=== PATIENT | male | born 1945 | race Caucasian/White ===

== ENCOUNTER 2016-04-14 10:47 | Emergency (ER) | payer MEDICARE, OTHER ==
[~2016-04-14 10:47] MED LIST: ASPIRIN EC325 MG PO; IMDUR ER TAB 6060 MG PO; LIPITOR TAB 1010 MG PO; LOPRESSOR 25 MG25 MG PO; NITROSTAT 0.40.4 MG SL; RANEXA500 MG PO
[2016-04-14 12:06] LABS: HEMOGLOBIN 12.7 gm/dl (14.0-17.5); RED BLOOD COUNT 4.05 M/UL (4.20-5.50); WHITE BLOOD COUNT 12.9 K/UL (4.5-11.0)
[2016-04-14 12:26] LABS: BUN/CREATININE RATIO 18 (0-10)
== END 2016-04-14 14:20 | disposition home or self-care (01) ==
LOC: ER1 10:47
PROVIDERS: Physician Assistant
DX: J10.1 Influenza due to other identified influenza virus with other respiratory manifestations (principal); N39.0 Urinary tract infection, site not specified; I25.2 Old myocardial infarction; Z95.1 Presence of aortocoronary bypass graft; Z85.46 Personal history of malignant neoplasm of prostate
CPT/HCPCS: 36415; 71020; 80053; 81001; 85025; 87086; 96372; 99283; J0696

== ENCOUNTER → 2020-02-23 | Outpatient (CLI) | payer MEDICARE, OTHER ==
[~2020-02-23] MED LIST changes: +ACCUPRIL 10 MG10 MG PO; +ALBUTEROL1.25 MG/3 INH; +AMIODARONE HCL200 MG PO; +AUGMENTIN 875-1 EACH PO; +CEFUROXIME500 MG PO; +CILOSTAZOL50 MG PO; +DULERA 200 MCG8.8 GM INH; +ELIQUIS 5 MG TAB5 MG PO; +IPRATROPIU0.2 MG/1 M NEB; +ISOSORBIDE MONO60 MG PO; +K-DUR TAB 10 M10 MEQ PO; +K-TAB ER10 MEQ PO; +LASIX40 MG PO; +LEVAQUIN750 MG PO; +LIPITOR TAB 2020 MG PO; +LISINOPRIL5 MG PO; +LOPRESSOR 50 MG50 MG PO; +MAG-OX 400 TAB400 MG PO; +MEDROL4 MG PO; +MOTRIN IB200 MG PO; +NORVASC 5 MG TAB5 MG PO; +PREDNISONE 5 MG5 MG PO; +PRILOSEC OTC20 MG PO; +PROTONIX40 MG PO; +QUINAPRIL HCL20 MG PO; +RANEXA1000 MG PO; +SYMBICORT 16010.2 GM INH; +TYLENOL325 MG PO; +VITAMIN B-121000 MCG PO; +ZITHROMAX250 MG PO; +ZYTIGA250 MG PO
[2020-02-23 10:01] LABS: BUN/CREATININE RATIO 16 (0-10)
== END ==
LOC: LAB 09:24
PROVIDERS: Internal Medicine Cardiovascular Disease
DX: I10 Essential (primary) hypertension (principal)
CPT/HCPCS: 36415; 80053

== ENCOUNTER 2020-09-04 11:25 | Emergency (ER) | payer MEDICARE, SELFPAY ==
[~2020-09-04] VITALS: Ht 172.7 cm; Wt 98.9 kg
[2020-09-04 11:59] LABS: HEMOGLOBIN 11.7 gm/dl (14.0-17.5); RED BLOOD COUNT 3.72 M/UL (4.20-5.50); WHITE BLOOD COUNT 4.2 K/UL (4.5-11.0)
[2020-09-04 12:11] LABS: BUN/CREATININE RATIO 15 (0-10)
[2020-09-04] MEDS ORDERED: K-DUR TAB 20 M20 MEQ PO (16:36)
== END 2020-09-04 17:40 | disposition home or self-care (01) ==
LOC: ER1 11:25
PROVIDERS: Physician Assistant
DX: Z23 Encounter for immunization (principal); U07.1 COVID-19; E87.6 Hypokalemia; I25.10 Atherosclerotic heart disease of native coronary artery without angina pectoris; I25.2 Old myocardial infarction; I50.9 Heart failure, unspecified; Z85.46 Personal history of malignant neoplasm of prostate; Z20.822 Contact with and (suspected) exposure to COVID-19
CPT/HCPCS: 71045; 80053; 82550; 82553; 83874; 84484; 85025; 93005; 99285; M0243; Q0243; U0002

== ENCOUNTER 2020-09-10 20:20 | Emergency (ER) | payer MEDICARE ==
[~2020-09-10 20:20] MED LIST changes: +K-DUR TAB 20 M20 MEQ PO
[2020-09-10 22:39] LABS: HEMOGLOBIN 12.4 gm/dl (14.0-17.5); RED BLOOD COUNT 3.85 M/UL (4.20-5.50); WHITE BLOOD COUNT 8.1 K/UL (4.5-11.0)
[2020-09-10 23:17] LABS: BUN/CREATININE RATIO 15 (0-10)
[2020-09-10] MEDS ORDERED: IPRAT-ALBUT 0.5-3 ML INH (23:38)
[2020-09-10] MEDS ORDERED: DECADRON6 MG PO (23:38)
[2020-09-10] MEDS ORDERED: K-DUR TAB 20 M20 MEQ PO (23:43)
== END 2020-09-11 | disposition home or self-care (01) ==
LOC: ER1 20:20
PROVIDERS: Family Medicine
DX: U07.1 COVID-19 (principal); E87.6 Hypokalemia; J44.9 Chronic obstructive pulmonary disease, unspecified; I11.0 Hypertensive heart disease with heart failure; I50.20 Unspecified systolic (congestive) heart failure
CPT/HCPCS: 36600; 71045; 80053; 82550; 82553; 82803; 83605; 83874; 83880; 84484; 85025; 93005; 96374; 99285; J1100

== ENCOUNTER 2020-11-06 15:22 | Emergency (ER) | payer MEDICARE ==
[~2020-11-06 15:22] MED LIST changes: +DECADRON6 MG PO; +IPRAT-ALBUT 0.5-3 ML INH
[2020-11-06 16:08] LABS: HEMOGLOBIN 13.2 gm/dl (14.0-17.5); RED BLOOD COUNT 4.03 M/UL (4.20-5.50)
[2020-11-06 16:54] LABS: BUN/CREATININE RATIO 29 (0-10)
== END 2020-11-06 17:53 | disposition home or self-care (01) ==
LOC: ER1 15:22
PROVIDERS: Family Medicine
DX: S32.049A Unspecified fracture of fourth lumbar vertebra, initial encounter for closed fracture (principal); S32.019A Unspecified fracture of first lumbar vertebra, initial encounter for closed fracture; X50.0XXA Overexertion from strenuous movement or load, initial encounter
CPT/HCPCS: 72131; 80053; 81001; 85025; 96372; 99284; J1100; J2270; J2550

== ENCOUNTER 2020-11-10 20:40 | Emergency (ER) | payer MEDICARE ==
[2020-11-10] MEDS ORDERED: HYDROCODON-ACE1 EAC4 PO (23:50)
== END 2020-11-11 | disposition home or self-care (01) ==
LOC: ER1 20:40
DX: S32.019A Unspecified fracture of first lumbar vertebra, initial encounter for closed fracture (principal); I25.10 Atherosclerotic heart disease of native coronary artery without angina pectoris; I10 Essential (primary) hypertension; Z95.1 Presence of aortocoronary bypass graft; X58.XXXA Exposure to other specified factors, initial encounter
CPT/HCPCS: 99283

== ENCOUNTER 2020-12-30 19:03 | Emergency (ER) | payer MEDICARE ==
[~2020-12-30 19:03] MED LIST changes: +HYDROCODON-ACE1 EAC4 PO
[2020-12-30 20:02] LABS: HEMOGLOBIN 13.6 gm/dl (14.0-17.5); RED BLOOD COUNT 4.22 M/UL (4.20-5.50); WHITE BLOOD COUNT 8.6 K/UL (4.5-11.0)
[2020-12-30 20:19] LABS: BUN/CREATININE RATIO 21 (0-10)
[2020-12-30] MEDS ORDERED: ALBUTEROL2.5 MG/3 M INH (23:37)
[2020-12-30] MEDS ORDERED: PREDNISONE20 MG PO (23:37)
[2020-12-30] MEDS ORDERED: PULMICORT FLEX90 MCG INH (23:37)
[2020-12-30] MEDS ORDERED: NEBULIZER UNIT (23:37)
== END 2020-12-31 00:15 | disposition home or self-care (01) ==
LOC: ER1 19:03
PROVIDERS: Physician Assistant Medical
DX: R05.9 Cough, unspecified (principal); Z20.822 Contact with and (suspected) exposure to COVID-19; I25.2 Old myocardial infarction; J44.9 Chronic obstructive pulmonary disease, unspecified; I10 Essential (primary) hypertension; F17.210 Nicotine dependence, cigarettes, uncomplicated; Z95.0 Presence of cardiac pacemaker
CPT/HCPCS: 71045; 80053; 82550; 82553; 83874; 83880; 84484; 85025; 93005; 94640; 94664; 96372; 96374; 99284; J2270; J2550; J2930; U0002

== ENCOUNTER 2021-01-04 11:50 | Inpatient (IN) | payer MEDICARE, MEDICAID ==
[~2021-01-04] VITALS: Ht 172.7 cm; Wt 76.3 kg
[~2021-01-04 11:50] MED LIST changes: +ALBUTEROL2.5 MG/3 M INH; +NEBULIZER UNIT; +PREDNISONE20 MG PO; +PULMICORT FLEX90 MCG INH
[2021-01-04 13:31] LABS: HEMOGLOBIN 13.1 gm/dl (14.0-17.5); RED BLOOD COUNT 4.04 M/UL (4.20-5.50); WHITE BLOOD COUNT 12.8 K/UL (4.5-11.0)
[2021-01-04 14:04] LABS: BUN/CREATININE RATIO 38 (0-10)
[2021-01-04] MEDS ORDERED: ATORVASTATIN CA10 MG PO (15:35)
[2021-01-04] MEDS ORDERED: POTASSIUM CHLO20 ME1 PO (15:37)
[2021-01-04] MEDS ORDERED: LORATADINE10 MG PO (15:37)
[2021-01-04] MEDS ORDERED: TYLENOL EXTRA500 MG PO (16:07)
[2021-01-04] MEDS ORDERED: IBUPROFEN200 MG PO (16:07)
[2021-01-04] MEDS ORDERED: ASPIRIN81 MG PO (16:08)
[2021-01-04] MEDS ORDERED: PROAIR HFA8.5 GM INH (16:08)
[2021-01-04] MEDS ORDERED: LISINOPRIL10 MG PO (17:27)
[2021-01-04] MEDS ORDERED: FUROSEMIDE40 MG PO (17:29)
[2021-01-04] MEDS ORDERED: AMLODIPINE BESYL5 MG PO (17:31)
[2021-01-04] MEDS ORDERED: ZYTIGA250 MG PO (17:48)
[2021-01-05 04:34] LABS: HEMOGLOBIN 12.7 gm/dl (14.0-17.5); RED BLOOD COUNT 4.05 M/UL (4.20-5.50); WHITE BLOOD COUNT 9.2 K/UL (4.5-11.0)
[2021-01-05 04:39] LABS: BUN/CREATININE RATIO 37 (0-10)
[2021-01-07 03:13] LABS: HEMOGLOBIN 12.4 gm/dl (14.0-17.5); RED BLOOD COUNT 3.9 M/UL (4.20-5.50)
[2021-01-07 03:15] LABS: WHITE BLOOD COUNT 12.5 K/UL (4.5-11.0)
[2021-01-08 03:34] LABS: HEMOGLOBIN 11.9 gm/dl (14.0-17.5); RED BLOOD COUNT 3.74 M/UL (4.20-5.50)
[2021-01-08 03:59] LABS: BUN/CREATININE RATIO 51 (0-10)
[2021-01-09] MEDS ORDERED: SYMBICORT 80-41 INHA INH (10:03)
[2021-01-09] MEDS ORDERED: AMIODARONE HCL200 MG PO (10:03)
[2021-01-09] MEDS ORDERED: LOPRESSOR 50 MG50 MG PO (10:03)
[2021-01-09] MEDS ORDERED: AUGMENTIN 875-1 EACH PO (11:17)
[2021-01-09 11:28] LABS: BUN/CREATININE RATIO 43 (0-10)
--- NOTE | 2021-01-09 18:07 | NUR ---
01/09/[id number] report called to [facility], spoke to daniel
== END 2021-01-09 17:53 | disposition home health service (06) | DRG 291 ==
LOC: ER1 11:50 → CDU 15:06 → PROG CARE 15:06
PROVIDERS: Emergency Medicine; Physician Assistant; ADMIT Internal Medicine Infectious Disease
PROC: B24BZZZ Ultrasonography of Heart with Aorta (ICD-10-PCS; principal; 2021-01-04)
DX: I11.0 Hypertensive heart disease with heart failure (principal); J96.01 Acute respiratory failure with hypoxia; I50.43 Acute on chronic combined systolic (congestive) and diastolic (congestive) heart failure; Z20.822 Contact with and (suspected) exposure to COVID-19; J18.9 Pneumonia, unspecified organism; J96.21 Acute and chronic respiratory failure with hypoxia; J44.1 Chronic obstructive pulmonary disease with (acute) exacerbation; N17.9 Acute kidney failure, unspecified; C79.51 Secondary malignant neoplasm of bone; C78.00 Secondary malignant neoplasm of unspecified lung; I48.20 Chronic atrial fibrillation, unspecified; J44.0 Chronic obstructive pulmonary disease with (acute) lower respiratory infection; G89.29 Other chronic pain; I25.118 Atherosclerotic heart disease of native coronary artery with other forms of angina pectoris; E11.51 Type 2 diabetes mellitus with diabetic peripheral angiopathy without gangrene; N40.0 Benign prostatic hyperplasia without lower urinary tract symptoms; D51.3 Other dietary vitamin B12 deficiency anemia; M54.16 Radiculopathy, lumbar region; I71.4 Abdominal aortic aneurysm, without rupture; C61 Malignant neoplasm of prostate; E88.09 Other disorders of plasma-protein metabolism, not elsewhere classified; H91.90 Unspecified hearing loss, unspecified ear; E78.5 Hyperlipidemia, unspecified; I48.0 Paroxysmal atrial fibrillation; I08.1 Rheumatic disorders of both mitral and tricuspid valves; I44.7 Left bundle-branch block, unspecified; I49.5 Sick sinus syndrome; F17.210 Nicotine dependence, cigarettes, uncomplicated; R53.81 Other malaise; Z95.1 Presence of aortocoronary bypass graft; Z79.01 Long term (current) use of anticoagulants; Z95.0 Presence of cardiac pacemaker; Z82.49 Family history of ischemic heart disease and other diseases of the circulatory system; Z83.3 Family history of diabetes mellitus; Z79.82 Long term (current) use of aspirin; Z99.81 Dependence on supplemental oxygen; Z87.01 Personal history of pneumonia (recurrent)
CPT/HCPCS: ECHO; 36415; 36600; 71045; 80048; 80053; 82550; 82553; 82803; 83605; 83735; 83874; 83880; 84484; 85025; 87040; 93005; 93306; 94640; 94760; 96374; 96375; 97116; 97161; 99285; J0696; J1335; J1940; J2930; U0002

== ENCOUNTER 2021-02-04 13:39 | Emergency (ER) | payer MEDICARE ==
[~2021-02-04 13:39] MED LIST changes: +AMLODIPINE BESYL5 MG PO; +ASPIRIN81 MG PO; +ATORVASTATIN CA10 MG PO; +FUROSEMIDE40 MG PO; +IBUPROFEN200 MG PO; +LISINOPRIL10 MG PO; +LORATADINE10 MG PO; +POTASSIUM CHLO20 ME1 PO; +PROAIR HFA8.5 GM INH; +SYMBICORT 80-41 INHA INH; +TYLENOL EXTRA500 MG PO
== END 2021-02-04 16:37 | disposition home or self-care (01) ==
LOC: ER1 13:39
DX: M25.511 Pain in right shoulder (principal); I51.9 Heart disease, unspecified
CPT/HCPCS: 73030; 93005; 96372; 99283; J1885; J2270

== ENCOUNTER → 2021-03-10 | Outpatient (CLI) | payer MEDICARE ==
[2021-03-10 10:15] LABS: HEMOGLOBIN 11.3 gm/dl (14.0-17.5); RED BLOOD COUNT 3.61 M/UL (4.20-5.50); WHITE BLOOD COUNT 9.4 K/UL (4.5-11.0)
[2021-03-10 10:44] LABS: BUN/CREATININE RATIO 20 (0-10)
[2021-03-13 11:11] LABS: CHOLESTEROL, TOTAL 183 mg/dL (100-199); HDL SIZE 9.4 nm (>=9.2); HDL-C 58 mg/dL (>39); HDL-P (TOTAL) 30.7 umol/L (>=30.5); LARGE HDL-P 6.8 umol/L (>=4.8); LARGE VLDL-P <0.8 nmol/L (<=2.7); LDL SIZE 21.3 nm (>20.5); LDL SIZE 21.3 nm (>=20.8); LDL-C 113 mg/dL (0-99); LDL-P 1339 nmol/L (<1000); LP-IR SCORE <25 (<=45); SMALL LDL-P 477 nmol/L (<=527); TRIGLYCERIDES 65 mg/dL (0-149); VLDL SIZE 36.1 nm (<=46.6)
== END ==
LOC: LAB 09:23
PROVIDERS: Emergency Medicine
DX: I25.10 Atherosclerotic heart disease of native coronary artery without angina pectoris (principal); I11.0 Hypertensive heart disease with heart failure; I50.32 Chronic diastolic (congestive) heart failure; M54.41 Lumbago with sciatica, right side; E78.2 Mixed hyperlipidemia; M51.36 Other intervertebral disc degeneration, lumbar region; I48.21 Permanent atrial fibrillation
CPT/HCPCS: 36415; 80053; 80061; 83704; 84153; 84443; 84550; 85025

== ENCOUNTER → 2021-04-20 | Outpatient (CLI) | payer MEDICARE | LOC: RAD 14:15 | DX: M13.861 Other specified arthritis, right knee (principal); I25.10 Atherosclerotic heart disease of native coronary artery without angina pectoris; I10 Essential (primary) hypertension; E78.2 Mixed hyperlipidemia; M17.11 Unilateral primary osteoarthritis, right knee | CPT/HCPCS: 73564 ==

== ENCOUNTER 2021-04-29 06:46 | Inpatient (IN) | payer MEDICARE, MEDICAID ==
[~2021-04-29] VITALS: Ht 172.7 cm; Wt 86.2 kg
[2021-04-29 07:22] LABS: HEMOGLOBIN 9.5 gm/dl (14.0-17.5); RED BLOOD COUNT 3.06 M/UL (4.20-5.50); WHITE BLOOD COUNT 12.3 K/UL (4.5-11.0)
[2021-04-29 07:40] LABS: BUN/CREATININE RATIO 22 (0-10)
[2021-04-29] MEDS ORDERED: ZESTRIL/PRINIVI10 MG PO (11:01)
[2021-04-29] MEDS ORDERED: METOPROLOL TART25 MG PO (11:01)
[2021-04-29] MEDS ORDERED: KLOR-CON M2020 MEQ PO (11:03)
[2021-04-29] MEDS ORDERED: LIPITOR TAB 1010 MG PO (11:04)
[2021-04-29] MEDS ORDERED: LASIX 40 MG TAB40 MG PO (11:04)
[2021-04-29] MEDS ORDERED: ASPIRIN EC325 MG PO (11:05)
[2021-04-29] MEDS ORDERED: AMLODIPINE BESYL5 MG PO (11:05)
[2021-04-29] MEDS ORDERED: PACERONE200 MG PO (11:06)
[2021-04-29] MEDS ORDERED: CYMBALTA 30 MG30 MG PO (11:06)
[2021-04-29] MEDS ORDERED: CILOSTAZOL50 MG PO (11:09)
--- NOTE | 2021-04-29 16:01 | NUR ---
PATIENT ARRIVED ON FLOOR AT 1207 TODAY. NOTIFIED MD BEACH OF PATIENT BEING ON FLOOR.
[2021-04-29] MEDS ORDERED: ZYTIGA250 MG PO (17:48)
[2021-04-29 18:16] LABS: HEMOGLOBIN 10.2 gm/dl (14.0-17.5)
[2021-04-30 02:26] LABS: HEMOGLOBIN 9.6 gm/dl (14.0-17.5); RED BLOOD COUNT 3.04 M/UL (4.20-5.50)
[2021-04-30 02:32] LABS: BUN/CREATININE RATIO 22 (0-10)
[2021-05-01 07:45] LABS: BUN/CREATININE RATIO 39 (0-10)
[2021-05-01 11:11] LABS: HEMOGLOBIN 9.8 gm/dl (14.0-17.5); RED BLOOD COUNT 3.09 M/UL (4.20-5.50)
[2021-05-01 11:12] LABS: WHITE BLOOD COUNT 27.5 K/UL (4.5-11.0)
[2021-05-01 14:13] LABS: RED BLOOD COUNT 3.15 M/UL (4.20-5.50)
[2021-05-02 02:20] LABS: HEMOGLOBIN 9.9 gm/dl (14.0-17.5); RED BLOOD COUNT 3.13 M/UL (4.20-5.50); WHITE BLOOD COUNT 24.8 K/UL (4.5-11.0)
[2021-05-02 02:53] LABS: BUN/CREATININE RATIO 46 (0-10)
[2021-05-03 05:46] LABS: RED BLOOD COUNT 3.21 M/UL (4.20-5.50)
[2021-05-03 05:49] LABS: WHITE BLOOD COUNT 18.2 K/UL (4.5-11.0)
[2021-05-03 07:05] LABS: BUN/CREATININE RATIO 38 (0-10)
[2021-05-04 02:06] LABS: HEMOGLOBIN 9.3 gm/dl (14.0-17.5); RED BLOOD COUNT 2.95 M/UL (4.20-5.50)
[2021-05-04 02:22] LABS: WHITE BLOOD COUNT 12.5 K/UL (4.5-11.0)
[2021-05-04 11:06] LABS: BUN/CREATININE RATIO 41 (0-10)
[2021-05-05 05:37] LABS: HEMOGLOBIN 9.6 gm/dl (14.0-17.5); RED BLOOD COUNT 3.06 M/UL (4.20-5.50); WHITE BLOOD COUNT 16.3 K/UL (4.5-11.0)
[2021-05-05 06:13] LABS: BUN/CREATININE RATIO 38 (0-10)
[2021-05-06 06:00] LABS: HEMOGLOBIN 9.8 gm/dl (14.0-17.5); RED BLOOD COUNT 3.17 M/UL (4.20-5.50); WHITE BLOOD COUNT 13.7 K/UL (4.5-11.0)
[2021-05-06 06:30] LABS: BUN/CREATININE RATIO 35 (0-10)
[2021-05-06] MEDS ORDERED: PROTONIX 40 MG40 M1 PO (10:51)
[2021-05-06] MEDS ORDERED: TRAMADOL HCL50 MG PO (10:51)
[2021-05-06] MEDS ORDERED: OMNICEF 300 MG300 MG PO (10:51)
[2021-05-06] MEDS ORDERED: ASPIRIN EC81 MG PO (10:51)
[2021-05-06] MEDS ORDERED: IPRAT-ALBUT 0.5-3 ML NEB (10:51)
[2021-05-06] MEDS ORDERED: PREDNISONE 5 MG5 MG GT (10:51)
== END 2021-05-06 14:10 | disposition home health service (06) | DRG 871 ==
LOC: ER1 06:46 → PROG CARE 09:09 → CDU 09:09 → PROG CARE 12:45
PROVIDERS: Internal Medicine; Nurse Practitioner; Physician Assistant Medical; ADMIT Internal Medicine
PROC: 3E03329 Introduction of Other Anti-infective into Peripheral Vein, Percutaneous Approach (ICD-10-PCS; principal; 2021-04-29)
PROC: 5A09457 Assistance with Respiratory Ventilation, 24-96 Consecutive Hours, Continuous Positive Airway Pressure (ICD-10-PCS; 2021-04-29)
PROC: 5A0935A Assistance with Respiratory Ventilation, Less than 24 Consecutive Hours, High Flow/Velocity Cannula (ICD-10-PCS; 2021-04-30)
PROC: 5A09357 Assistance with Respiratory Ventilation, Less than 24 Consecutive Hours, Continuous Positive Airway Pressure (ICD-10-PCS; 2021-05-02)
PROC: 5A0945A Assistance with Respiratory Ventilation, 24-96 Consecutive Hours, High Flow/Velocity Cannula (ICD-10-PCS; 2021-05-02)
DX: A41.9 Sepsis, unspecified organism (principal); J18.9 Pneumonia, unspecified organism; J80 Acute respiratory distress syndrome; I50.23 Acute on chronic systolic (congestive) heart failure; J44.0 Chronic obstructive pulmonary disease with (acute) lower respiratory infection; Z20.822 Contact with and (suspected) exposure to COVID-19; R65.20 Severe sepsis without septic shock; I49.9 Cardiac arrhythmia, unspecified; H91.93 Unspecified hearing loss, bilateral; I11.0 Hypertensive heart disease with heart failure; G25.81 Restless legs syndrome; I71.4 Abdominal aortic aneurysm, without rupture; I25.10 Atherosclerotic heart disease of native coronary artery without angina pectoris; I49.5 Sick sinus syndrome; I48.91 Unspecified atrial fibrillation; Z95.1 Presence of aortocoronary bypass graft; Z79.01 Long term (current) use of anticoagulants; Z95.0 Presence of cardiac pacemaker; Z99.81 Dependence on supplemental oxygen; Z85.46 Personal history of malignant neoplasm of prostate; Z82.49 Family history of ischemic heart disease and other diseases of the circulatory system; Z87.891 Personal history of nicotine dependence; Z82.5 Family history of asthma and other chronic lower respiratory diseases; I25.2 Old myocardial infarction
CPT/HCPCS: 0240U; 36415; 36600; 71045; 71250; 80048; 80053; 80202; 81001; 82550; 82553; 82803; 83605; 83735; 83880; 84100; 84132; 84484; 85014; 85018; 85025; 85027; 85610; 85652; 85730; 86140; 87040; 93005; 94640; 94660; 94664; 94760; 96374; 96375; 97110; 97110-GP-CQ; 97116-GP-CQ; 97162; 97166; 99285; J1644; J1940; J2185; J2543; J2920; J2930; J3370; J3475; J7070

== ENCOUNTER 2021-05-21 12:25 | Emergency (ER) | payer MEDICARE ==
[~2021-05-21 12:25] MED LIST changes: +ASPIRIN EC81 MG PO; +CYMBALTA 30 MG30 MG PO; +IPRAT-ALBUT 0.5-3 ML NEB; +KLOR-CON M2020 MEQ PO; +LASIX 40 MG TAB40 MG PO; +METOPROLOL TART25 MG PO; +OMNICEF 300 MG300 MG PO; +PACERONE200 MG PO; +PREDNISONE 5 MG5 MG GT; +PROTONIX 40 MG40 M1 PO; +TRAMADOL HCL50 MG PO; +ZESTRIL/PRINIVI10 MG PO
[2021-05-21 13:30] LABS: HEMOGLOBIN 9.6 gm/dl (14.0-17.5); RED BLOOD COUNT 3.13 M/UL (4.20-5.50); WHITE BLOOD COUNT 13.6 K/UL (4.5-11.0)
[2021-05-21 13:52] LABS: BUN/CREATININE RATIO 20 (0-10)
[2021-05-21] MEDS ORDERED: LASIX40 MG PO (17:18)
[2021-05-21] MEDS ORDERED: K-TAB ER20 MEQ PO (17:18)
== END 2021-05-21 18:21 | disposition home or self-care (01) ==
LOC: ER1 12:25
PROVIDERS: Physician Assistant
DX: J96.11 Chronic respiratory failure with hypoxia (principal); I11.0 Hypertensive heart disease with heart failure; I50.9 Heart failure, unspecified; Z20.822 Contact with and (suspected) exposure to COVID-19; I25.10 Atherosclerotic heart disease of native coronary artery without angina pectoris; J44.9 Chronic obstructive pulmonary disease, unspecified; I48.91 Unspecified atrial fibrillation; Z95.5 Presence of coronary angioplasty implant and graft; Z85.46 Personal history of malignant neoplasm of prostate
CPT/HCPCS: 0240U; 36600; 71045; 80053; 81001; 82550; 82553; 82803; 83605; 83880; 84484; 85025; 87040; 93005; 94664; 96374; 96375; 99285; J1940; J2930

== ENCOUNTER → 2021-06-05 | Outpatient (CLI) | payer MEDICARE ==
[~2021-06-05] MED LIST changes: +K-TAB ER20 MEQ PO
[2021-06-05 08:24] LABS: BUN/CREATININE RATIO 19 (0-10)
== END ==
LOC: LAB 07:39
PROVIDERS: Internal Medicine Cardiovascular Disease
DX: I11.0 Hypertensive heart disease with heart failure (principal); I50.22 Chronic systolic (congestive) heart failure
CPT/HCPCS: 36415; 80053; 83735; 83880

== ENCOUNTER 2021-07-05 09:53 | Emergency (ER) | payer MEDICARE ==
[2021-07-05 13:12] LABS: HEMOGLOBIN 11.1 gm/dl (14.0-17.5); RED BLOOD COUNT 3.71 M/UL (4.20-5.50); WHITE BLOOD COUNT 14.2 K/UL (4.5-11.0)
== END 2021-07-05 18:16 | disposition home or self-care (01) ==
LOC: ER1 09:53
PROVIDERS: Physician Assistant
DX: M54.10 Radiculopathy, site unspecified (principal); M54.50 Low back pain, unspecified; G89.29 Other chronic pain; E78.5 Hyperlipidemia, unspecified; I11.0 Hypertensive heart disease with heart failure; I50.9 Heart failure, unspecified; J44.9 Chronic obstructive pulmonary disease, unspecified; F17.210 Nicotine dependence, cigarettes, uncomplicated; Z99.81 Dependence on supplemental oxygen
CPT/HCPCS: 73502; 73564; 80053; 85025; 85379; 93971; 99283; J1885

== ENCOUNTER → 2021-07-31 | Outpatient (CLI) | payer MEDICARE ==
[~2021-07-31] MED LIST changes: +LEVOFLOXACIN500 MG PO; +POTASSIUM CHLO20 ME2 PO
== END ==
LOC: CT 09:53
DX: M51.36 Other intervertebral disc degeneration, lumbar region (principal); M13.151 Monoarthritis, not elsewhere classified, right hip
CPT/HCPCS: 72131; 72192

== ENCOUNTER 2021-08-12 10:48 | Inpatient (IN) | payer MEDICARE ==
[~2021-08-12] VITALS: Ht 172.7 cm; Wt 86.0 kg
[2021-08-12 11:26] LABS: HEMOGLOBIN 9.6 gm/dl (14.0-17.5); RED BLOOD COUNT 3.35 M/UL (4.20-5.50); WHITE BLOOD COUNT 12.6 K/UL (4.5-11.0)
[2021-08-12 11:46] LABS: BUN/CREATININE RATIO 21 (0-10)
[2021-08-13 02:57] LABS: HEMOGLOBIN 8.4 gm/dl (14.0-17.5); RED BLOOD COUNT 2.89 M/UL (4.20-5.50); WHITE BLOOD COUNT 9.8 K/UL (4.5-11.0)
[2021-08-13 03:24] LABS: BUN/CREATININE RATIO 23 (0-10)
[2021-08-14 02:20] LABS: BUN/CREATININE RATIO 30 (0-10)
[2021-08-15 03:12] LABS: BUN/CREATININE RATIO 31 (0-10)
[2021-08-16 02:37] LABS: BUN/CREATININE RATIO 29 (0-10)
[2021-08-16] MEDS ORDERED: BUMETANIDE1 MG PO (11:37)
[2021-08-16] MEDS ORDERED: LISINOPRIL5 MG PO (11:42)
== END 2021-08-16 15:17 | disposition home health service (06) | DRG 291 ==
LOC: ER1 10:48 → CDU 12:24 → PROG CARE 12:24
PROVIDERS: Internal Medicine; Internal Medicine Infectious Disease; Nurse Practitioner; Physician Assistant; ADMIT Internal Medicine
PROC: 5A09357 Assistance with Respiratory Ventilation, Less than 24 Consecutive Hours, Continuous Positive Airway Pressure (ICD-10-PCS; principal; 2021-08-12)
PROC: 5A09357 Assistance with Respiratory Ventilation, Less than 24 Consecutive Hours, Continuous Positive Airway Pressure (ICD-10-PCS; 2021-08-13)
PROC: 5A09357 Assistance with Respiratory Ventilation, Less than 24 Consecutive Hours, Continuous Positive Airway Pressure (ICD-10-PCS; 2021-08-14)
PROC: 5A09357 Assistance with Respiratory Ventilation, Less than 24 Consecutive Hours, Continuous Positive Airway Pressure (ICD-10-PCS; 2021-08-15)
DX: I11.0 Hypertensive heart disease with heart failure (principal); I50.33 Acute on chronic diastolic (congestive) heart failure; J96.21 Acute and chronic respiratory failure with hypoxia; I48.0 Paroxysmal atrial fibrillation; I71.4 Abdominal aortic aneurysm, without rupture; H91.90 Unspecified hearing loss, unspecified ear; J44.9 Chronic obstructive pulmonary disease, unspecified; E87.6 Hypokalemia; M54.9 Dorsalgia, unspecified; G89.29 Other chronic pain; R74.01 Elevation of levels of liver transaminase levels; E78.5 Hyperlipidemia, unspecified; I49.5 Sick sinus syndrome; I25.10 Atherosclerotic heart disease of native coronary artery without angina pectoris; Z95.5 Presence of coronary angioplasty implant and graft; Z95.0 Presence of cardiac pacemaker; Z85.46 Personal history of malignant neoplasm of prostate; Z79.82 Long term (current) use of aspirin; Z79.899 Other long term (current) drug therapy; Z82.49 Family history of ischemic heart disease and other diseases of the circulatory system; Z87.891 Personal history of nicotine dependence
CPT/HCPCS: 0240U; 36415; 36600; 71045; 80048; 80053; 81001; 82550; 82553; 82803; 83605; 83735; 83880; 84439; 84443; 84484; 85025; 85652; 86140; 87040; 93005; 94640; 94660; 94664; 94760; 96374; 96375; 97116-GP-CQ; 97161; 99285; J0696; J1100; J1940

== ENCOUNTER → 2021-08-21 | Outpatient (CLI) | payer MEDICARE ==
[~2021-08-21] MED LIST changes: +BACLOFEN10 MG PO; +BUMETANIDE1 MG PO; +CLEOCIN HCL300 MG PO; +ELIQUIS5 MG PO; +ENTRESTO 24 MG1 EACH PO; +NITROGLYCERIN0.4 MG SL; +ULTRAM50 MG PO
== END ==
LOC: HEART 5 11:08
DX: R06.02 Shortness of breath (principal); Z79.899 Other long term (current) drug therapy
CPT/HCPCS: 36415; 80048; 80076; 84439; 84443; 84481; 85025; 94060; 94729

== ENCOUNTER → 2021-08-23 | Outpatient (CLI) | payer MEDICARE | LOC: CATH 11:02 | DX: Z45.010 Encounter for checking and testing of cardiac pacemaker pulse generator [battery] (principal); I49.5 Sick sinus syndrome; I48.0 Paroxysmal atrial fibrillation; I10 Essential (primary) hypertension; I25.10 Atherosclerotic heart disease of native coronary artery without angina pectoris; E78.5 Hyperlipidemia, unspecified; J43.9 Emphysema, unspecified; Z87.891 Personal history of nicotine dependence; Z79.899 Other long term (current) drug therapy; Z95.5 Presence of coronary angioplasty implant and graft; Z85.46 Personal history of malignant neoplasm of prostate; Z79.01 Long term (current) use of anticoagulants; Z79.82 Long term (current) use of aspirin | CPT/HCPCS: 33213; 99152; 99153; C1785; J2250; J3010; J3370; J7040; J7050 ==

== ENCOUNTER 2021-09-03 03:41 | Inpatient (IN) | payer MEDICARE ==
[~2021-09-03] VITALS: Ht 152.4 cm; Wt 89.4 kg
[2021-09-03 04:33] LABS: RED BLOOD COUNT 3.16 M/UL (4.20-5.50)
[2021-09-03 04:40] LABS: WHITE BLOOD COUNT 15.5 K/UL (4.5-11.0)
[2021-09-03] MEDS ORDERED: HYDROCODON-ACE1 EAC4 PO (11:34)
[2021-09-03] MEDS ORDERED: POTASSIUM CHLO20 ME2 PO (11:34)
[2021-09-03] MEDS ORDERED: BUMETANIDE1 MG PO (11:35)
[2021-09-03] MEDS ORDERED: LORATADINE10 MG PO (11:35)
[2021-09-03] MEDS ORDERED: PROTONIX 40 MG40 M1 PO (11:36)
[2021-09-04 05:12] LABS: WHITE BLOOD COUNT 11.7 K/UL (4.5-11.0)
[2021-09-04 05:20] LABS: RED BLOOD COUNT 3.53 M/UL (4.20-5.50)
[2021-09-04 05:33] LABS: BUN/CREATININE RATIO 23 (0-10)
[2021-09-05 04:47] LABS: HEMOGLOBIN 9.6 gm/dl (14.0-17.5); RED BLOOD COUNT 3.41 M/UL (4.20-5.50)
[2021-09-05 04:53] LABS: WHITE BLOOD COUNT 22.1 K/UL (4.5-11.0)
[2021-09-05 05:48] LABS: BUN/CREATININE RATIO 36 (0-10)
[2021-09-06 04:55] LABS: HEMOGLOBIN 9.2 gm/dl (14.0-17.5); RED BLOOD COUNT 3.23 M/UL (4.20-5.50); WHITE BLOOD COUNT 21.4 K/UL (4.5-11.0)
[2021-09-06 05:36] LABS: BUN/CREATININE RATIO 37 (0-10)
[2021-09-06] MEDS ORDERED: DOXYCYCLINE HY100 MG PO (11:16)
[2021-09-06] MEDS ORDERED: AMOX TR-K CLV1 EAC4 PO (11:16)
--- NOTE | 2021-09-06 12:45 | NUR ---
REPORT CALLED TO HOME [facility]ALTH. PER THE PATIENT WILL BE SEEN TOMORROW.
== END 2021-09-06 14:53 | disposition home or self-care (01) | DRG 871 ==
LOC: ER1 03:41 → CDU 06:11 → CCU 06:11 → PROG CARE 06:11 → CCU 09:09 → PROG CARE 16:10
PROVIDERS: Internal Medicine; Internal Medicine Nephrology; Student in an Organized Health Care Education/Training Program; ADMIT Internal Medicine
PROC: 3E043XZ Introduction of Vasopressor into Central Vein, Percutaneous Approach (ICD-10-PCS; principal; 2021-09-03)
PROC: 3E03329 Introduction of Other Anti-infective into Peripheral Vein, Percutaneous Approach (ICD-10-PCS; 2021-09-03)
DX: A41.9 Sepsis, unspecified organism (principal); G93.41 Metabolic encephalopathy; J18.9 Pneumonia, unspecified organism; Z20.822 Contact with and (suspected) exposure to COVID-19; R65.21 Severe sepsis with septic shock; I50.33 Acute on chronic diastolic (congestive) heart failure; J96.21 Acute and chronic respiratory failure with hypoxia; N17.9 Acute kidney failure, unspecified; E87.2 Acidosis; I11.0 Hypertensive heart disease with heart failure; I25.10 Atherosclerotic heart disease of native coronary artery without angina pectoris; I71.4 Abdominal aortic aneurysm, without rupture; J44.9 Chronic obstructive pulmonary disease, unspecified; I49.5 Sick sinus syndrome; I48.91 Unspecified atrial fibrillation; Z95.0 Presence of cardiac pacemaker; Z79.01 Long term (current) use of anticoagulants; Z95.1 Presence of aortocoronary bypass graft; Z85.46 Personal history of malignant neoplasm of prostate; Z95.5 Presence of coronary angioplasty implant and graft; Z99.81 Dependence on supplemental oxygen
CPT/HCPCS: 0241U; 36415; 36600; 51702; 70450; 71045; 71046; 71250; 80048; 80053; 80202; 81001; 82140; 82550; 82553; 82565; 82570; 82803; 82962; 83036; 83605; 83735; 83880; 84133; 84156; 84300; 84484; 85025; 85027; 86140; 87040; 93005; 94640; 94660; 94664; 94760; 96374; 97161; 97530; 99285; J0360; J0692; J0696; J1650; J1940; J2185; J2920; J3370; J7040; J7070

== ENCOUNTER → 2021-09-28 | Outpatient (CLI) | payer MEDICARE ==
[~2021-09-28] MED LIST changes: +AMOX TR-K CLV1 EAC4 PO; +DOXYCYCLINE HY100 MG PO
== END ==
LOC: CT 09-21 15:30
DX: I50.32 Chronic diastolic (congestive) heart failure (principal); R59.0 Localized enlarged lymph nodes; I71.2 Thoracic aortic aneurysm, without rupture
CPT/HCPCS: 71250

== ENCOUNTER → 2021-10-12 | Outpatient (CLI) | payer MEDICARE ==
[2021-10-12 12:17] LABS: HEMOGLOBIN 12.7 gm/dl (14.0-17.5); RED BLOOD COUNT 4.43 M/UL (4.20-5.50); WHITE BLOOD COUNT 12.4 K/UL (4.5-11.0)
== END ==
LOC: LAB 11:34
PROVIDERS: Emergency Medicine
DX: J44.1 Chronic obstructive pulmonary disease with (acute) exacerbation (principal); I50.32 Chronic diastolic (congestive) heart failure; I11.0 Hypertensive heart disease with heart failure; R60.0 Localized edema
CPT/HCPCS: 36415; 80053; 83880; 84443; 85025

== ENCOUNTER → 2021-10-30 | Outpatient (CLI) | payer MEDICARE | LOC: US 07:20 | DX: I73.00 Raynaud's syndrome without gangrene (principal); M79.604 Pain in right leg; M79.605 Pain in left leg | CPT/HCPCS: 93925 ==